=== PATIENT | female | born 1970 | race Caucasian/White ===

== ENCOUNTER → 2018-12-08 | Outpatient (CLI) | payer OTHER ==
[2018-12-08 13:31] VITALS: BP 146/84; PULSE 92; TEMP 96.5; BMI 23.0
--- NOTE | 2018-12-08 15:29 | P.HPOB ---
History of Present Illness H&P Date: 12/08/18 Chief Complaint: The patient is here for her routine gynecologic exam and mammogram. This is a 48-year-old with an LMP of June 2018. The patient is here to establish with this office. She states that is been about 10 years since her last pelvic exam. She is not used control for many years and she has a history of endometriosis with tubal blockage per the patient. The patient states she developed severe right lower quadrant abdominal pain 3 days ago. She called it sharp pain and was rated 10 out of 10. She almost went to the emergency room for this, but the pain due to improve. The pain is came in waves about every 15 minutes. She states the pain is now at about 4 out of 10. She did miss a couple of days of work because of the pain. She also had nausea and vomiting without diarrhea and vomited twice 3 days ago. She is no longer vomiting but still feels slightly nauseated especially after eating. She denies fever. She did have a change in her stools which were small "snake" like. They continue to be soft, but not thin like they were 3 days ago. She typically moves her bowels every 2 to 3 days. She denies constipation. She denies any urinary tract symptoms such as urinary frequency or urgency. She has been having more hot flashes during the past 6 months. She has also been amenorrheic for the past 5-6 months. Her menses were regular every month up until about 1 year ago when the started becoming less frequent. Review of Systems She is getting about 15 pounds over the last year. She denies respiratory or cardiac problems. G.I.: nausea and vomiting 3 days ago with changes in her stools and abdominal pain as in the HPI. She denies any vaginal discharge and denies fever. Past Medical History Past Medical History: No Reported History Additional Past Medical History / Comment(s): PAST BIOMED TECH HISTORY: She has no history of STDs. She did have endometriosis diagnosed with a laparotomy around age 18. History of Any Multi-Drug Resistant Organisms: None Reported Additional Past Surgical History / Comment(s): Laparotomy around age 18 and was diagnosed with endometriosis and tubal occlusion. Past Psychological History: No Psychological Hx Reported Smoking Status: Current every day smoker (1 pack per day) Past Alcohol Use History: Occasional (6 per week) Past Drug Use History: None Reported Additional History: She has been since 2018 and has been with her partner since approximately 1988. She is an [employer] and works at [employer]. - Past Family History Father Family Medical History: Hypertension Additional Family Medical History / Comment(s): Paternal uncle had hypertension. Paternal grandmother had diabetes. Mother Additional Family Medical History / Comment(s): Chronic back problems. Medications and Allergies Home Medications Medication Instructions Recorded Confirmed Type No Known Home Medications 12/08/18 12/08/18 History Allergies Allergy/AdvReac Type Severity Reaction Status Date / Time No Known Allergies Allergy Unverified 12/08/18 13:15 Exam Vital Signs Temp Pulse BP 12/08/18 13:17 96.5 F L 92 146/84 Intake and Output 12/08/18 12/08/18 12/08/18 06:59 14:59 22:59 Other: Weight 70.76 kg Height 5'9", weight 156 pounds, BMI 23.0. This is a well-developed well-nourished white female who is alert and oriented times 3 in no acute distress. HEENT: Within normal limits. NECK: Supple without mass or thyromegaly. CHEST AND LUNGS: Clear to auscultation. HEART: Regular rate and rhythm. BREASTS: Are without mass or discharge. AXILLARY EXAM: Negative for adenopathy. BACK: Negative for CVA tenderness. ABDOMEN: Soft, nontender, without palpable masses. There are 2+ bowel sounds. The abdomen is nondistended. PELVIC EXAM: Normal external genitalia. Cervix and vagina appear normal with mild atrophy. The cervix is somewhat stenotic. There is no unusual discharge. There is no evidence of prolapse. There is no cervical motion tenderness. The uterus is midposition, nongravid size and nontender. There are no palpable adnexal masses. There is minimal right adnexal tenderness which did not elicit any reaction upon the bimanual examination, but after the exam, she states it was slightly uncomfortable after the bimanual examination. RECTAL EXAM: rectovaginal exam is negative for mass or tenderness and is negative for occult blood. EXTREMITIES: Nontender. IMPRESSION: 1. 48-year-old perimenopausal female with the recent acute right lower quadrant abdominal and right pelvic pain 3 days ago which has been gradually improving. No significant physical findings on exam today. Differential diagnosis will include ruptured ovarian cyst, G.I. pain, UTI, renal lithiasis and acute appendicitis is unlikely. PLAN: 1. Pap smear was performed. 2. Self breast awareness was discussed with the patient. 3. Screening mammogram will be done today. 4. Clean catch urine specimen was obtained for urinalysis, culture and sensitivity and urine hCG. 5. Pelvic ultrasound will be done today. 6. If urine testing and pelvic ultrasound are unremarkable, this most likely represents a transient G.I. problems such as gastroenteritis or some form of food poisoning. If symptoms continue to improve, all we will consider no further testing. She was instructed to go to the emergency room if she is having worsening symptoms or problems. 7. She will return in one year and PRN.
--- NOTE | 2018-12-08 15:38 | US ---
EXAMINATION TYPE: US transvaginal DATE OF EXAM: 12/08/2018 COMPARISON: NONE CLINICAL HISTORY: R10 ABDOMINAL PAIN/R10.2 PELVIC PAIN. RLQ pain x 4 days, 1, para 1 TECHNIQUE: Transvaginal exam only per ordering physician Date of LMP: 6 months ago EXAM MEASUREMENTS: Uterus: 4.4 x 2.0 x 3.2 cm Endometrial Stripe: 0.3 cm Right Ovary: 1.6 x 1.0 x 0.9 cm Left Ovary: not seen 1. Uterus: anteverted, heterogeneous, multiple nabothian cysts 2. Endometrium: wnl 3. Right Ovary: wnl 4. Left Ovary: not seen due to overlying bowel gas 5. Bilateral Adnexa: wnl 6. Posterior cul-de-sac: wnl A few small nabothian cysts are seen in the cervix. Heterogeneous anteverted uterus is present. Endom etrial stripe does not appear suspiciously thickened. No free fluid in pelvic cul-de-sac. Right ovary is seen and normal in size. Left ovary is not distinctly identified. IMPRESSION: No suspicious finding on transvaginal pelvic ultrasound to account for patient's symptoms of right-sided pelvic pain.
[2018-12-08 19:35] LABS: Appearance,Urine Clear (Clear); Bilirubin,Urine Negative (Negative); Blood,Urine Moderate (Negative); Color,Urine Yellow; Glucose,Urine (UA) Negative (Negative); Ketones,Urine Negative (Negative); Leukocyte Esterase,Urine Negative (Negative); Mucus,Urine Rare /hpf; Nitrite,Urine Negative (Negative); Protein,Urine Negative (Negative); RBC,Urine 10 /hpf (0-5); Specific Gravity,Urine 1.013 (1.001-1.035); Squamous Epithelial Cell,Urine <1 /hpf (0-4); Urobilinogen,Urine <2.0 mg/dL (<2.0); WBC,Urine <1 /hpf (0-5)
--- NOTE | 2018-12-12 11:34 | MM ---
Reason for exam: screening (asymptomatic). MG 3D Screening Mammo W/Cad Bilateral CC and MLO view(s) were taken. ASSESSMENT: Benign, BI-RAD 2 RECOMMENDATION: Routine screening mammogram of both breasts in 1 year.
== END | disposition home or self-care (01) ==
LOC: WWCWWP 12:57
PROVIDERS: ATTEND Obstetrics & Gynecology
DX: Z12.31 Encounter for screening mammogram for malignant neoplasm of breast (principal); R10.31 Right lower quadrant pain; R10.2 Pelvic and perineal pain
CPT/HCPCS: 76830; 77063; 77067; 81001; 81025; 87086